=== PATIENT | female | born 1960 | race Caucasian/White ===

== ENCOUNTER 2017-03-27 10:37 | Outpatient (CLI) | payer OTHER | END 2017-03-27 10:38 | disposition home or self-care (01) | DX: Z12.31 Encounter for screening mammogram for malignant neoplasm of breast (principal); R92.8 Other abnormal and inconclusive findings on diagnostic imaging of breast ==

== ENCOUNTER 2017-04-14 12:47 | Outpatient (CLI) | payer OTHER ==
--- NOTE | 2017-04-15 13:39 | Ultrasound Report ---
REVISED: THIS REPORT WAS ORIGINALLY SIGNED ON 04/16/2017 @ 0826 ORDERS LINKED ON 04/23/2017 ADDITIONAL VIEWS OF THE LEFT BREAST AND LEFT BREAST ULTRASOUND: 04/14/2017 CLINICAL HISTORY: A 56-year-old female who had a new small mass noted within the 6 o'clock position of the left breast on recent screening mammogram dated . Patient returns today for additional views of the left breast. Patient has no family history of breast cancer. Patient has had no breast surgeries. COMPARISON: 10/05/2007, 02/12/2010, 04/15/2011, 04/22/2011, 11/06/2011, 2013, 03/27/2017. TECHNIQUE: Coned-down compression craniocaudad and oblique lateral views of the left breast were obtained with [employer] full-field digital mammography. Real -time scanning of the left breast was performed with ambulatory service representative static images obtained. MAMMOGRAM FINDINGS: Breast parenchyma consists almost entirely of fat. In the 6 o'clock position of the left breast 3-6 cm inferior and posterior to the left nipple is located a small well-circumscribed mass measuring 0.6 cm in diameter. This mass was not present on preceding exam dated 09/07/2014. It most likely is of benign etiology. It probably represents a benign cyst but recommend left breast ultrasound to further confirm this benign etiology. LEFT BREAST ULTRASOUND FINDINGS: Left breast ultrasound demonstrates two small benign cysts lying adjacent to one another in the 6 to 6:30 position of the left breast 5 cm posterior and inferior to the left nipple. The largest of these cysts measures 0.6 cm in diameter and contains a thin septum. The smaller cyst adjacent to it measures 0.2 cm. Findings have a benign configuration. IMPRESSION: SMALL MASS NOTED IN THE 6 O'CLOCK POSITION ON SCREENING MAMMOGRAM IS SHOWN TO REPRESENT TWO SMALL BENIGN CYSTS LYING ADJACENT TO ONE ANOTHER. THEY MEASURE 0.6 CM AND 0.2 CM, RESPECTIVELY. BI-RADS 2, benign. RECOMMENDATION: Annual bilateral screening mammography. COMMENT: Dr. Cam informed the patient of the benign results. STANDARD QUALIFYING STATEMENTS 1. This examination was reviewed with the aid of Computer-Aided Detection (CAD). 2. A negative or benign imaging report should not delay biopsy if clinically suspicious findings are present. Consider surgical consultation if warranted. More than 5% of cancers are not identified by imaging. 3. Dense breasts may obscure an underlying neoplasm. JOB #: [id number] EXT JOB #: [id number] [facility]
== END 2017-04-14 12:48 | disposition home or self-care (01) ==
LOC: DI 12:47
PROVIDERS: ATTEND Family Medicine
DX: N60.12 Diffuse cystic mastopathy of left breast (principal)
CPT/HCPCS: 76642